=== PATIENT | male | born 1990 | race Caucasian/White ===

== ENCOUNTER 2025-04-17 16:22 | Inpatient (IN) | payer OTHER ==
[2025-04-17 16:46] VITALS: BMI 29.8
[2025-04-17] MEDS ORDERED: BENZONATATE 200 MG CAPSULE PO PRN (17:00)
[2025-04-17] MEDS ORDERED: LOPERAMIDE HCL 2 MG CAPSULE PO PRN (17:00)
[2025-04-17] MEDS ORDERED: guaiFENesin 600 MG TABLET.ER (FP) PO PRN (17:00)
[2025-04-17] MEDS ORDERED: BENZOCAINE/MENTHOL (CHLORASEPTIC ) LOZENGE MM PRN (17:00)
[2025-04-17] MEDS ORDERED: IBUPROFEN 400 MG TABLET (FP) PO PRN (17:00)
[2025-04-17] MEDS ORDERED: NALOXONE (NARCAN) HCL 4 MG/0.1 ML SPRAY NS PRN (17:00)
[2025-04-17] MEDS ORDERED: POLYETHYLENE GLYCOL (HEALTHYLAX) 3350 17 GM PACKET PO PRN (17:00)
[2025-04-17] MEDS ORDERED: BISMUTH SUBSALICYLATE 524 MG/30 ML PO PRN (17:00)
[2025-04-17] MEDS ORDERED: DICYCLOMINE HCL 10 MG CAPSULE PO PRN (17:00)
[2025-04-17] MEDS ORDERED: MAGNESIUM HYDROX 2400MG/30ML ORAL SUSPENSION 30 ML CUP PO PRN (17:00)
[2025-04-17] MEDS ORDERED: IBUPROFEN 600 MG TABLET (FP) PO PRN (17:00)
[2025-04-17] MEDS ORDERED: ACETAMINOPHEN 325 MG TABLET (FP) PO PRN (17:00)
[2025-04-17] MEDS ORDERED: chlordiazePOXIDE HCL 25 MG CAPSULE ONE (17:53)
[2025-04-17] MEDS: chlordiazePOXIDE HCL 25 MG CAPSULE PO PRN (17:56)
[2025-04-17] MEDS: hydrOXYzine PAMOATE 25 MG CAPSULE (FP) PO PRN (18:20)
[2025-04-17] MEDS: ONDANSETRON *ODT* 4 MG TABLET SL PRN (18:21)
[2025-04-17] MEDS: MELATONIN 5 MG TABLETS PO SCH (22:32)
[2025-04-17] MEDS: THIAMINE 100 MG TABLET PO SCH (22:32)
[2025-04-17] MEDS: METHOCARBAMOL 500 MG TABLET PO PRN (22:32)
[2025-04-17] MEDS: chlordiazePOXIDE HCL 25 MG CAPSULE PO SCH (22:32)
[2025-04-18] MEDS: MAG HYDROX/AL HYDROX/SIMETH 30 ML UNIT-DOSE CUP PO PRN (05:42)
[2025-04-18 09:21] LABS: HEMATOCRIT 41.1 % (40.1-51.0); HEMOGLOBIN 14.3 g/dL (13.7-17.5); MCHC 34.8 g/dl (32.3-36.5); MEAN CELL VOLUME 96.5 fl (79.0-92.2); MEAN PLT VOLUME 10.5 fl (9.4-12.4); PLATELET COUNT 225 x10^3/uL (163-337); RDW 11.9 % (12.0-15.6)
[2025-04-18 09:23] LABS: CHLORIDE 99 mmol/L (98-107); POTASSIUM 3.3 mmol/L (3.5-5.1); SODIUM 138 mmol/L (136-145)
[2025-04-18 09:25] LABS: CALCIUM 9.6 mg/dL (8.5-10.1)
[2025-04-18 09:26] LABS: ALBUMIN 3.7 g/dl (3.4-5.0); ANION GAP 8 mmol/L (4-13); BLOOD UREA NITROGEN 10.3 mg/dL (7-18); CO2 31 mmol/L (21-32); GLUCOSE,RANDOM 113 mg/dL (74-106)
[2025-04-18 09:29] LABS: CREATININE 0.9 mg/dL (0.55-1.3); SGPT/ALT 66 U/L (13-61)
[2025-04-18 09:31] LABS: TOT PROT 6.3 g/dl (6.4-8.2)
[2025-04-18 09:32] LABS: ALK PHOS 99 U/L (45-117); SGOT/AST 46 U/L (15-37)
[2025-04-18] MEDS: PRENATAL VITAMINS W/ FOLIC ACID TABLET (FP) PO SCH (10:03)
[2025-04-18] MEDS: PANTOPRAZOLE 40 MG TABLET PO SCH (10:03)
[2025-04-18] MEDS: FLUoxetine HCL 20 MG CAPSULE PO SCH (10:03)
[2025-04-18] MEDS: POTASSIUM CHLORIDE ORAL LIQUID 20 MEQ/15 ML PO ONE ×2 (10:56→14:39)
[2025-04-18] MEDS: busPIRone HCL 10 MG TABLET (FP) PO SCH (13:27)
[2025-04-19] MEDS: chlordiazePOXIDE HCL 25 MG CAPSULE PO SCH (05:47)
[2025-04-20] MEDS ORDERED: chlordiazePOXIDE HCL 10 MG CAPSULE PO PRN
[2025-04-20] MEDS: chlordiazePOXIDE HCL 10 MG CAPSULE PO SCH (05:43)
[2025-04-20] MEDS: NICOTINE POLACRILEX 2 MG GUM BUC PRN (09:48)
[2025-04-20] MEDS ORDERED: PRAZOSIN HCL 5 MG CAPSULE PO SCH (22:00)
[2025-04-20] MEDS: SUVOREXANT 10 MG TABLET PO PRN (22:07)
[2025-04-21] MEDS: chlordiazePOXIDE HCL 10 MG CAPSULE PO SCH (06:00)
[2025-04-21] MEDS: NICOTINE 14 MG/24 HOURS TOPICAL PATCH TD SCH (10:57)
[2025-04-21 21:41] VITALS: RESP 18
[2025-04-22] MEDS: chlordiazePOXIDE HCL 10 MG CAPSULE PO ONE (05:50)
[2025-04-22 09:42] VITALS: BP 129/84; PULSE 90; TEMP 97.6
== END 2025-04-22 09:29 | disposition home or self-care (01) | DRG 774 ==
LOC: YASAS 16:22 → Y6N 17:36
PROVIDERS: ADMIT Family Medicine; ATTEND Family Medicine
PROC: HZ2ZZZZ Detoxification Services for Substance Abuse Treatment (ICD-10-PCS; principal; 2025-04-17)
DX: F10.230 Alcohol dependence with withdrawal, uncomplicated (principal); F14.20 Cocaine dependence, uncomplicated; F17.210 Nicotine dependence, cigarettes, uncomplicated; F19.282 Other psychoactive substance dependence with psychoactive substance-induced sleep disorder; F19.280 Other psychoactive substance dependence with psychoactive substance-induced anxiety disorder; F41.9 Anxiety disorder, unspecified; F32.A Depression, unspecified; G47.00 Insomnia, unspecified; K21.9 Gastro-esophageal reflux disease without esophagitis
CPT/HCPCS: 36415; 80053; 80305; 80307; 84132; 85027; 86780; 93005; 93010; Q0162